=== PATIENT | male | born 1940 | race African-American/Black ===

== ENCOUNTER 2019-02-15 09:40 | Outpatient (CLI) | payer MEDICARE ==
[2019-02-15] MEDS ORDERED: AD OINTMENT TP SCH (10:00)
[2019-02-15] MEDS ORDERED: XYLOCAINE TOPICAL 4% TP ONE (10:00)
== END 2019-02-15 09:41 | disposition home or self-care (01) ==
LOC: WOUND 09:40
PROVIDERS: ATTEND Surgery
DX: E11.622 Type 2 diabetes mellitus with other skin ulcer (principal); L97.222 Non-pressure chronic ulcer of left calf with fat layer exposed; I10 Essential (primary) hypertension; N40.0 Benign prostatic hyperplasia without lower urinary tract symptoms; Z79.4 Long term (current) use of insulin
CPT/HCPCS: 11042; G0463; 99205; A6250

== ENCOUNTER 2019-02-15 15:48 | Outpatient (CLI) | payer MEDICARE | END 2019-02-15 15:49 | disposition home or self-care (01) | LOC: LAB 15:48 | PROVIDERS: ATTEND Surgery | DX: E11.628 Type 2 diabetes mellitus with other skin complications (principal); I10 Essential (primary) hypertension; K21.9 Gastro-esophageal reflux disease without esophagitis | CPT/HCPCS: 36415; 83036 ==

== ENCOUNTER 2019-02-22 08:58 | Outpatient (CLI) | payer MEDICARE ==
[2019-02-22] MEDS ORDERED: AD OINTMENT TP SCH (10:00)
[2019-02-22] MEDS ORDERED: XYLOCAINE TOPICAL 4% TP ONE (10:00)
== END 2019-02-22 08:59 | disposition home or self-care (01) ==
LOC: WOUND 08:58
PROVIDERS: ATTEND Surgery
DX: E11.622 Type 2 diabetes mellitus with other skin ulcer (principal); L97.222 Non-pressure chronic ulcer of left calf with fat layer exposed; I10 Essential (primary) hypertension; N40.0 Benign prostatic hyperplasia without lower urinary tract symptoms; Z79.4 Long term (current) use of insulin
CPT/HCPCS: A6250

== ENCOUNTER 2019-03-01 09:06 | Outpatient (CLI) | payer MEDICARE ==
[2019-03-01] MEDS ORDERED: SILVER NITRATE TP ONE (10:00)
[2019-03-01] MEDS ORDERED: XYLOCAINE TOPICAL 4% TP ONE (10:00)
== END 2019-03-01 09:07 | disposition home or self-care (01) ==
LOC: WOUND 09:06
PROVIDERS: ATTEND Surgery
DX: E11.622 Type 2 diabetes mellitus with other skin ulcer (principal); L97.222 Non-pressure chronic ulcer of left calf with fat layer exposed; I10 Essential (primary) hypertension; N40.0 Benign prostatic hyperplasia without lower urinary tract symptoms; Z79.4 Long term (current) use of insulin